=== PATIENT | female | born 1950 | race Caucasian/White ===

== ENCOUNTER 2022-02-17 12:12 | Inpatient (IN) | payer MEDICARE, OTHER ==
[2022-02-15 15:12] LABS: BASOPHILS # (AUTO) 0.1 X10'3 (0-0.2); BASOPHILS % (AUTO) 0.7 % (0-1); EOSINOPHILS # (AUTO) 0.2 X10'3 (0-0.9); EOSINOPHILS % (AUTO) 1.9 % (0-6); LYMPHOCYTES # (AUTO) 1.6 X10'3 (1.1-4.8); LYMPHOCYTES % (AUTO) 19.2 % (21-51); MEAN CORPUSCULAR HGB CONC 33.6 g/dL (33.0-36.5); MEAN CORPUSCULAR VOLUME 95.3 FL (78-98); MEAN PLATELET VOLUME 7.7 FL (7.4-10.4); MONOCYTES # (AUTO) 0.4 X10'3 (0-0.9); MONOCYTES % (AUTO) 5.2 % (2-12); NEUTROPHILS # (AUTO) 6.2 X10'3 (1.8-7.7); PRE OP HEMATOCRIT 30.9 % (35.0-45.0); PRE OP PLATELET COUNT 408 X10'3 (140-440); RED BLOOD COUNT 3.24 X10'6 (4.20-5.60); RED CELL DISTRIBUTION WIDTH 12.9 % (11.5-14.5)
[2022-02-15 15:20] LABS: PRE OP HEMOGLOBIN 10.4 g/dL (12.0-16.0)
[2022-02-15 15:21] LABS: ALBUMIN 3.5 G/DL (3.4-5.0); ALBUMIN/GLOBULIN RATIO 0.8 (1.1-1.5); ALKALINE PHOSPHATASE 114 IU/L (46-116); BLOOD UREA NITROGEN 16 MG/DL (7-18); CALCIUM 9.6 MG/DL (8.5-10.1); CHLORIDE 105 MMOL/L (99-107); CREATININE 0.89 MG/DL (0.40-0.90); PRE OP ALT 17 U/L (30-65); PRE OP ANION GAP 8 (8-16); PRE OP AST 14 U/L (10-37); PRE OP BILIRUB, TOTAL 0.3 MG/DL (0.0-1.0); PRE OP GLUCOSE 132 MG/DL (70-104); PRE OP SODIUM 141 MMOL/L (135-145); TOTAL CARBON DIOXIDE 27.7 MMOL/L (24-32); TOTAL PROTEIN 8.1 G/DL (6.4-8.2); eGFR 62 ML/MIN
[2022-02-16 20:55] VITALS: BP 148/88
[2022-02-17] VITALS (16 sets, daily range): BP systolic 102–160; BP diastolic 62–88
[~2022-02-17] VITALS: Ht 165.1 cm; Wt 90.6 kg
[~2022-02-17 12:12] MED LIST: ACET-1025 PO; GABA-534 PO; HYDR-3972 PO; MELO-102 PO; METO100T7 PO; ROSU10TA28 PO; famotidine 20mg tablet PO ONE; ringers solution, lacted 1,000 ML IV SCH
[2022-02-17] MEDS ORDERED: vancomycin/NS 1 GM in NS 250 ML IV ONE (13:00)
[2022-02-17] MEDS ORDERED: ringers solution, lacted 1,000 ML IV SCH ×2 (13:00→18:10)
[2022-02-17] MEDS ORDERED: ceFAZolin inj. 2,000 MG in dextrose 5%-water 100 ML IV ONE (13:00)
--- NOTE | 2022-02-17 14:00 | NUR ---
PT STATES SHE SHOWERED AND USED NASAL OINTMENT PER PROTOCOL, SHE STATES SHE WASN'T ABLE TO ASSESS THE WEB SITE FOR THE TOTAL JOINT INFORMATION. LEFT LE W/FULL SENSATION, BIT SHARPENER 1-2 SECONDS, PEDAL AND TIBIAL PULSES PALPABLE. Addendum: 02/17/22 at 1602 by Pamella Mata RN Amended: Links added.
[2022-02-17] MEDS ORDERED: ROPIVAcaine 0.5% (5mg/ml) 30ml vial ONE ×2 (15:53→16:50)
[2022-02-17] MEDS ORDERED: ketorolac trometh. 30mg/ml inj. ONE (15:53)
[2022-02-17] MEDS ORDERED: cloNIDine hcl/PF 100mcg/ml inj ONE (16:49)
[2022-02-17] MEDS ORDERED: tetracaine 1% (10mg/ml) pres. free inj. ONE (16:50)
[2022-02-17] MEDS ORDERED: MIDAZolam 1 MG/ML 5ML VIAL ONE (16:53)
[2022-02-17] MEDS ORDERED: fentaNYL/PF 50MCG/1 ML 2ML syringe ONE (16:53)
[2022-02-17] MEDS ORDERED: ondansetron/PF 4mg/2ml inj IV PRN ×2 (18:10→19:15)
[2022-02-17] MEDS ORDERED: HYDROmorphone/PF 0.2 MG/ML SYRINGE IV PRN ×2 (18:10)
[2022-02-17] MEDS ORDERED: fentaNYL/PF 50MCG/1 ML 2ML syringe IV PRN ×2 (18:10)
[2022-02-17] MEDS ORDERED: diphenhydrAMINE 50 mg/ml inj ONE (18:34)
[2022-02-17] MEDS ORDERED: propofol inj 20 ML IV ONE (18:34)
--- NOTE | 2022-02-17 19:12 | NUR ---
Received from OR via ORTHO BED , accompanied by Anesthesiologist STEFFEN and report given by Anesthesiolgist. PATIENT WITH KNEE WRAP AND POWDER PACK TO LEFT KNEE. CDI NO DRAINAGE PRESENT. PATIENT WITH + DP PRESENT AND VSS AT THIS TIME. MEDICATED FOR PAIN UPON ARRIVAL . STATES PAIN OF 5 IS HER PAIN GOAL AT THIS TIME. SCDS DONNED. VSS. 20G PIV IN LEFT UE RUNNING LR AT 100. Addendum: 02/17/22 at 2013 by Ross Rodriguez RN, RN Amended: Links added.
[2022-02-17] MEDS ORDERED: naloxone 0.4 mg/ml inj IV PRN (19:15)
[2022-02-17] MEDS ORDERED: HYDROmorphone 1 mg/ml syringe IV PRN (19:15)
[2022-02-17] MEDS ORDERED: non-formulary drug (Acetaminophen (Tylenol Extra Strength) 1 TAB) PO PRN (19:15)
[2022-02-17] MEDS ORDERED: acetaminophen 325mg tablet PO PRN (19:15)
[2022-02-17] MEDS ORDERED: oxyCODONE IR 5mg (immed. release) tablet PO PRN (19:15)
[2022-02-17] MEDS ORDERED: HYDROmorphone inj. 0.5 MG/0.5 ML DISP.SYRIN IV PRN (19:15)
[2022-02-17] MEDS ORDERED: magnesium hydroxide 30ml (MOM) UD suspension PO PRN (19:15)
[2022-02-17] MEDS ORDERED: diphenhydrAMINE 25mg capsule PO PRN ×2 (19:15)
[2022-02-17] MEDS ORDERED: bisacodyl 10mg suppository rectal RC PRN (19:15)
[2022-02-17] MEDS ORDERED: HYDROcodone/acetaminophen 10/325mg tab PO PRN ×2 (19:15)
[2022-02-17 19:38] LABS: ISTAT CREATININE 0.7 mg/dL (0.6-1.1); ISTAT HGB 10.5 g/dl (12.0-16.0); ISTAT IONIZED CALCIUM 1.32 mmol/L (1.03-1.32); ISTAT K 4.2 mmol/L (3.5-5.1); POC BUN/CREATININE RATIO 15.7 (6.6-38.0)
[2022-02-17] MEDS ORDERED: vancomycin/NS 1 GM ADD-VANTAGE 250 ML IV SCH (20:00)
--- NOTE | 2022-02-17 20:22 | NUR ---
CARE OF PATIENT AND REPORT HAS BEEN CALLED. ALL QUESTIONS ANSWERED TO ACCEPTING RN. PATIENT HAS MET ALL CRITERIA FOR TRANSFER TO THE ORTHO FLOOR. VSS. DRESSINGS INTACT. BED LOW, CALL LIGHT PRESENT AND 2 RAILS UP. ZULMA VARGAS PRESENT TO ACCEPT, DAUGHTER PRESENT WITH PATIENT BELONGINGS. Addendum: 02/17/22 at 2040 by Ross Be - ZULMA MAYA Amended: Links added.
[2022-02-17] MEDS: gabapentin 300mg capsule PO SCH (21:03)
[2022-02-17] MEDS: potassium cl 20mEq in 1/2 NS 1,000 ML IV SCH (21:03)
[2022-02-17] MEDS: acetaminophen 325mg tablet PO SCH (21:04)
[2022-02-17] MEDS: sennosides 8.6mg tablet PO SCH (21:04)
[2022-02-17] MEDS: oxyCODONE IR 5mg (immed. release) tablet PO PRN (21:05)
[2022-02-18] VITALS (7 sets, daily range): BP systolic 92–155; BP diastolic 29–87
[2022-02-18] MEDS: ceFAZolin/D5W- 1GM premix 50 ML IV SCH ×2 (00:51→08:05)
[2022-02-18] MEDS: oxyCODONE IR 5mg (immed. release) tablet PO PRN ×5 (00:52→19:22)
[2022-02-18] MEDS: acetaminophen 325mg tablet PO SCH ×4 (02:00→19:21)
[2022-02-18] MEDS: potassium cl 20mEq in 1/2 NS 1,000 ML IV SCH ×3 (05:42→19:15)
[2022-02-18 06:25] LABS: BASOPHILS % (AUTO) 0.3 % (0-1); EOSINOPHILS % (AUTO) 0.1 % (0-6); HEMATOCRIT 28.6 % (35.0-45.0); HEMOGLOBIN 9.6 g/dl (12.0-16.0); LYMPHOCYTES # (AUTO) 0.9 X10'3 (1.1-4.8); LYMPHOCYTES % (AUTO) 10.1 % (21-51); MEAN CORPUSCULAR HGB CONC 33.5 g/dL (33.0-36.5); MEAN CORPUSCULAR VOLUME 95.5 FL (78-98); MEAN PLATELET VOLUME 7.9 FL (7.4-10.4); MONOCYTES # (AUTO) 0.4 X10'3 (0-0.9); MONOCYTES % (AUTO) 4.4 % (2-12); NEUTROPHILS % (AUTO) 85.1 % (42-75); PLATELET COUNT 310 X10'3 (140-440); RED CELL DISTRIBUTION WIDTH 12.6 % (11.5-14.5); WHITE BLOOD COUNT 9.4 X10'3 (4.5-11.0)
[2022-02-18 06:33] LABS: ANION GAP 8 (8-16); CHLORIDE 105 MMOL/L (99-107); POTASSIUM 4.1 MMOL/L (3.5-5.1); SODIUM 140 MMOL/L (135-145); TOTAL CARBON DIOXIDE 27.3 MMOL/L (24-32)
[2022-02-18] MEDS: metoprolol succinate 25mg (24-HOUR) SR. Tablet PO SCH (08:00)
[2022-02-18] MEDS: gabapentin 300mg capsule PO SCH ×2 (08:10→19:21)
[2022-02-18] MEDS: atorvastatin 20mg tablet PO SCH (08:11)
[2022-02-18] MEDS: aspirin 325mg tablet PO SCH (08:12)
[2022-02-18] MEDS: Meloxicam 15 MG TAB PO SCH (10:30)
[2022-02-18] MEDS: sennosides 8.6mg tablet PO SCH (19:20)
[2022-02-19] MEDS: acetaminophen 325mg tablet PO SCH ×2 (02:00→08:36)
[2022-02-19] MEDS: potassium cl 20mEq in 1/2 NS 1,000 ML IV SCH (03:15)
[2022-02-19] MEDS: oxyCODONE IR 5mg (immed. release) tablet PO PRN (05:19)
[2022-02-19 06:00] VITALS: BP 140/66
[2022-02-19 07:13] LABS: BASOPHILS # (AUTO) 0.1 X10'3 (0-0.2); BASOPHILS % (AUTO) 1.1 % (0-1); EOSINOPHILS # (AUTO) 0.2 X10'3 (0-0.9); EOSINOPHILS % (AUTO) 2.7 % (0-6); HEMATOCRIT 26.3 % (35.0-45.0); HEMOGLOBIN 8.7 g/dl (12.0-16.0); LYMPHOCYTES % (AUTO) 14.7 % (21-51); MEAN CORPUSCULAR HGB CONC 33.3 g/dL (33.0-36.5); MEAN CORPUSCULAR VOLUME 95.9 FL (78-98); MEAN PLATELET VOLUME 8.3 FL (7.4-10.4); MONOCYTES # (AUTO) 0.5 X10'3 (0-0.9); MONOCYTES % (AUTO) 7.7 % (2-12); NEUTROPHILS # (AUTO) 4.8 X10'3 (1.8-7.7); NEUTROPHILS % (AUTO) 73.8 % (42-75); PLATELET COUNT 241 X10'3 (140-440); RED BLOOD COUNT 2.74 X10'6 (4.20-5.60); RED CELL DISTRIBUTION WIDTH 13.4 % (11.5-14.5); WHITE BLOOD COUNT 6.5 X10'3 (4.5-11.0)
[2022-02-19] MEDS: atorvastatin 20mg tablet PO SCH (08:00)
[2022-02-19] MEDS: Meloxicam 15 MG TAB PO SCH (08:00)
[2022-02-19] MEDS: aspirin 325mg tablet PO SCH (08:34)
[2022-02-19] MEDS: gabapentin 300mg capsule PO SCH (08:34)
[2022-02-19] MEDS: metoprolol succinate 25mg (24-HOUR) SR. Tablet PO SCH (08:35)
[2022-02-19 10:00] VITALS: BP 115/58
[2022-02-19] MEDS ORDERED: acetaminophen 325mg tablet PO PRN (19:15)
== END 2022-02-19 11:50 | disposition home health service (06) | DRG 465 ==
LOC: PAS IN 12:12 → ORTHO 4S 20:35
PROVIDERS: ADMIT Orthopaedic Surgery; ATTEND Orthopaedic Surgery
PROC: 0SRD0N9 Replacement of Left Knee Joint with Patellofemoral Synthetic Substitute, Cemented, Open Approach (ICD-10-PCS; 2022-02-17)
PROC: 3E0T3BZ Introduction of Anesthetic Agent into Peripheral Nerves and Plexi, Percutaneous Approach (ICD-10-PCS; 2022-02-17)
PROC: 0SPD0NZ Removal of Patellofemoral Synthetic Substitute from Left Knee Joint, Open Approach (ICD-10-PCS; principal; 2022-02-17 17:14)
DX: M97.12XA Periprosthetic fracture around internal prosthetic left knee joint, initial encounter (principal); Z96.652 Presence of left artificial knee joint; M65.88 Other synovitis and tenosynovitis, other site
CPT/HCPCS: 36415; 80047; 80051; 80053; 82948; 85025; 86885; 86900; 86901; 87081; 87811; 97116; 97161; 97530; A4215; A6253; A6449; A7000; C1713; C1758; C1776; G0378; J0690; J0735; J1170; J1200; J1885; J2250; J2704; J2795; J3010; J3370; J3480; J3490; J7060; J7120

== ENCOUNTER 2024-12-12 09:07 | Day surgery (SDC) | payer MEDICARE, OTHER ==
[~2024-12-12] VITALS: Ht 167.6 cm; Wt 93.0 kg
[2024-12-12] VITALS (12 sets, daily range): BP systolic 122–159; BP diastolic 70–92; PULSE 67–78; RESP 15–19; O2SAT 94–97
[~2024-12-12 09:07] MED LIST changes: -ACET-1025 PO; +CHOL100017 PO; -GABA-534 PO; +GABA300C PO; -HYDR-3972 PO; -MELO-102 PO; -METO100T7 PO; -ROSU10TA28 PO; +ROSU10TA72 PO; -famotidine 20mg tablet PO ONE; -ringers solution, lacted 1,000 ML IV SCH
[2024-12-12] MEDS ORDERED: nitroGLYCERIN 0.4mg SUBLingual tab SL PRN (09:40)
[2024-12-12] MEDS ORDERED: fentaNYL/PF 50MCG/1 ML 2ML syringe ONE (10:06)
[2024-12-12] MEDS ORDERED: LIDOcaine 1% 30ml preserv. free vial ONE (10:06)
[2024-12-12] MEDS ORDERED: iohexol 350 MG/ML 50ML vial IV ONE (10:06)
[2024-12-12] MEDS ORDERED: midazolam 1 mg/ML 2ml injection ONE ×2 (10:06→11:13)
[2024-12-12] MEDS ORDERED: iohexol 350MG/ML 100ml bottle IV ONE (10:06)
[2024-12-12] MEDS ORDERED: ASPI-611 PO (10:10)
[2024-12-12] MEDS ORDERED: NITR0.4T48 (10:10)
[2024-12-12] MEDS ORDERED: METO-411 PO (10:10)
--- NOTE | 2024-12-12 10:16 | RADIOLOGY REPORT ---
EXAM: DI CHEST,TWO VIEWS HISTORY: PRE OP HEART CATH COMPARISON: None TECHNIQUE: Frontal and lateral views of the chest were performed. FINDINGS: No pneumothorax, pulmonary edema, pleural effusions, or consolidative infiltrates. There is mild elev ation of the right hemidiaphragm. The heart is not enlarged. No fractures are identified about the b leslie thorax. 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 There is slight thoracolumbar levoscoliosis. IMPRESSION: 1. No acute intrathoracic process. 2. Mild elevation of the right hemidiaphragm.
--- NOTE | 2024-12-12 10:25 | ELECTROCARDIOGRAPH REPORT ---
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 BRINDA Alves Measurements Intervals [place] Rate: 73 P: 6 LA: 168 QRS: -35 QRSD: 95 T: 18 QT: 435 QTc: 480 Interpretive Statements Sinus rhythm Multiple ventricular premature complexes Left axis deviation Electronically Signed On 12-12-2024 15:15:[address] BRINDA Alves Please click the below link to view image of tracing.
[2024-12-12 10:31] LABS: BASOPHILS % (AUTO) 0.8 % (0-1); EOSINOPHILS # (AUTO) 0.3 X10'3 (0-0.9); EOSINOPHILS % (AUTO) 4.4 % (0-6); HEMATOCRIT 39.8 % (35.0-45.0); HEMOGLOBIN 13.5 g/dl (12.0-16.0); LYMPHOCYTES # (AUTO) 1.2 X10'3 (1.1-4.8); LYMPHOCYTES % (AUTO) 19.4 % (21-51); MEAN CORPUSCULAR HEMOGLOBIN 31.9 PG (27.0-31.0); MEAN CORPUSCULAR HGB CONC 33.9 g/dL (33.0-36.5); MEAN PLATELET VOLUME 8.7 FL (7.4-10.4); MONOCYTES # (AUTO) 0.4 X10'3 (0-0.9); MONOCYTES % (AUTO) 6.6 % (2-12); NEUTROPHILS # (AUTO) 4.2 X10'3 (1.8-7.7); NEUTROPHILS % (AUTO) 68.8 % (42-75); PLATELET COUNT 211 X10'3 (140-440); RED BLOOD COUNT 4.24 X10'6 (4.20-5.60); RED CELL DISTRIBUTION WIDTH 13.5 % (11.5-14.5); WHITE BLOOD COUNT 6.1 X10'3 (4.5-11.0)
[2024-12-12 10:45] LABS: APTT 21 SECONDS (22-32); PROTHROMBIN TIME 9.9 SECONDS (9.0-12.0)
[2024-12-12] MEDS: normal saline 1,000 ML IV SCH (10:45)
[2024-12-12] MEDS: LORazepam 0.5 MG tablet PO PRN (10:45)
[2024-12-12] MEDS: diphenhydrAMINE 25mg capsule PO PRN (10:45)
[2024-12-12 10:54] LABS: ALBUMIN 3.5 G/DL (3.4-5.0); ANION GAP 8 (8-16); BLOOD UREA NITROGEN 14 MG/DL (7-18); BUN/CREATININE RATIO 16.3 (10.0-20.0); CALCIUM 9.2 MG/DL (8.5-10.1); CHLORIDE 106 MMOL/L (99-107); CREATININE 0.86 MG/DL (0.40-0.90); GLUCOSE 105 MG/DL (70-104); POTASSIUM 3.8 MMOL/L (3.5-5.1); PRO BRAIN NATRIURETIC PEPTIDE 451 PG/ML (0-450); SODIUM 140 MMOL/L (135-145); TOTAL CARBON DIOXIDE 25.7 MMOL/L (24-32); eCRCL 53 ML/MIN; eGFR 64 ML/MIN
[2024-12-12] MEDS ORDERED: OXAZEpam 15mg capsule PO PRN (12:10)
[2024-12-12] MEDS ORDERED: proCHLORperazine 10 MG/2 ml inj IV PRN (12:10)
[2024-12-12] MEDS ORDERED: ondansetron/PF 4mg/2ml inj IV PRN (12:10)
[2024-12-12] MEDS ORDERED: HYDROcodone/acetaminophen 5mg/325mg tablet PO PRN (12:10)
[2024-12-12] MEDS: HYDROcodone/acetaminophen 10/325mg tab PO PRN (15:19)
--- NOTE | 2024-12-12 15:49 | CARDIOLOGY REPORT ---
DATE OF SERVICE: 12/12/2024 DICTATING PHYSICIAN: Cliff Aguilar MD PROCEDURES: * Left heart catheterization. * Left ventriculography. * Selective left and right coronary arteriography. * Right iliofemoral arteriogram, Angio-Seal application. * Conscious sedation administration 30 minutes. BRIEF HISTORY/INDICATION: A 74-year-old female had arrhythmias with monitoring showing short nonsustained ventricular tachycardia, frequent PVCs, ventricular bigeminy, frequent APCs, short bursts of atrial tachycardia. Recurrent noncardiac chest pain, anxiety, shortness of breath. She had a Lexiscan with apical reversible ischemia and septal apical hypokinesis. History of Raynaud's phenomenon of the toes. Echocardiography showed dyssynchronous left ventricular contractility, ejection fraction of 50%. Lexiscan ejection fraction of 50%. Risks, benefits, and alternatives of diagnostic coronary angiography, heart catheterization were discussed with her. She desires intervention if there is a severe stenosis. Risks included not restricted to , stroke, myocardial infarction, renal failure, neurologic or vascular complication, bleeding complication, and allergic reaction. TECHNIQUE: Following usual sterile preparation and draping, right groin was then infiltrated with 10 mL of 1% lidocaine local anesthetic. Conscious sedation was achieved with 3 mg Versed, 100 mcg fentanyl during the procedure. The patient was anxious. She was maintained on intravenous normal saline 100 mL per hour, O2 of 2 L per minute. Following single wall puncture technique, J-tip guidewire lead, a 6-Malawian sheath was introduced into the right femoral artery. Selective left and right coronary arteriography in multiple projectional obliquities were performed with 6-Malawian femoral left 4, right 4 [place]-shaped catheters and an internal mammary artery catheter to the right coronary due to local coronary anatomy. Left ventriculography in right anterior oblique projection was performed with straight pigtail catheter. Catheter exchanges were under fluoroscopic guidance with J-tip guidewire lead. At termination, right iliofemoral arteriogram was performed. Angio-Seal was applied in laborer beam house. Hemostasis was obtained. There were no complications. Peripheral pulse was intact. No hematoma. 75 mL of Omnipaque 350 contrast was administered. Fluoroscopy time was 5.9 minutes. Radiation exposure was 6149 cGy per cm2. FINDINGS: 5 feet 6 inches, 205 pounds, 74-year-old female. AO 119/54, LV 119/5-18. LEFT VENTRICULOGRAM: Mild hypokinesis, ejection fraction of 50%. No mitral regurgitation. Right iliofemoral artery is smooth. Left main coronary gives rise to the left anterior descending, a large intermediate branch, and left circumflex. Left main coronary artery is smooth. Smooth left anterior descending. The distal one-half of the left anterior descending is tortuous. There is a 20% proximal intermediate branch narrowing, a large vessel. The ostium of the intermediate is never exposed in spite of multiple angulations. There is a proximal left circumflex narrowing smooth vessel. Right coronary cusp has large calcification. Ostium of the right coronary is inferior and adjacent to the large calcific segment. Smooth right coronary artery ostium and smooth right coronary providing posterior descending and posterolateral that reaches the apex of the myocardium. RESULTS: * Normal left main coronary artery. * Smooth left anterior descending. * 20% proximal intermediate branch narrowing. * 20% proximal left circumflex narrowing. * Heavy right coronary cusp calcification, smooth right coronary artery. COMMENT: The patient has mild cardiomyopathy, which would explain her abnormal nuclear scan dyssynchronous contractility of the left ventricle and ventricular and atrial arrhythmias. She is recommended for continued risk factor intervention and medical therapy. Cliff Aguilar MD TID: [id number] RECEIPT: [id number] RUPAL/ARIANA cc: Dr. INDY DA SILVA
== END 2024-12-12 18:20 | disposition home or self-care (01) ==
LOC: SSTAY O 09:07
PROVIDERS: ATTEND Internal Medicine Cardiovascular Disease
DX: R94.39 Abnormal result of other cardiovascular function study (principal); I25.110 Atherosclerotic heart disease of native coronary artery with unstable angina pectoris; I49.3 Ventricular premature depolarization; I10 Essential (primary) hypertension; E66.9 Obesity, unspecified; Z79.899 Other long term (current) drug therapy; Z98.890 Other specified postprocedural states
CPT/HCPCS: 36415; 71046; 80048; 83880; 84484; 85025; 85610; 85730; 93005; 93458; 99152; 99153; A6258; A6402; C1760; J1644; J2003; J2250; J3010; J7030; Q0163; Q9967; Z7610